=== PATIENT | male | born 1955 | race Two or more races ===

== ENCOUNTER 2019-05-04 08:27 | Outpatient (CLI) | payer BC, OTHER ==
[2019-05-04] MEDS ORDERED: LISI-170 PO (08:58)
[2019-05-04 09:42] LABS: MICROSCOPIC NOT IND
[2019-05-04 09:48] LABS: BASOPHILS # (AUTO) 0.04 x10^3/uL (0-0.1); BASOPHILS % (AUTO) 1 % (0-1); EOSINOPHILS # (AUTO) 0.09 x10^3/uL (0-0.4); EOSINOPHILS % (AUTO) 2 % (1-7); LYMPHOCYTES # (AUTO) 1.66 x10^3/uL (1-3.4); LYMPHOCYTES % (AUTO) 27 % (22-44); MD NO; MEAN CORPUSCULAR HEMOGLOBIN 27.1 pg (27.5-34.5); MEAN CORPUSCULAR HGB CONC 33.2 g/dL (33.2-36.2); MEAN CORPUSCULAR VOLUME 81.4 fL (81-97); MEAN PLATELET VOLUME 6.7 fL (7.4-10.4); MONOCYTES # (AUTO) 0.75 x10^3/uL (0.2-0.8); MONOCYTES % (AUTO) 13 % (2-9); NEUTROPHILS # (AUTO) 3.51 x10^3/uL (1.8-6.8); NEUTROPHILS % (AUTO) 58 % (42-75); PLATELET COUNT 256 x10^3/uL (130-400); RED BLOOD COUNT 5.57 x10^6/uL (4.38-5.82); RED CELL DISTRIBUTION WIDTH 14.5 % (9.4-14.8)
[2019-05-04 09:52] LABS: INTERNATIONAL NORMALIZED RATIO 1.1 (0.93-1.1); PROTHROMBIN TIME 11.7 Seconds (9.6-11.5)
[2019-05-04 09:53] LABS: ALBUMIN 4.2 g/dL (3.4-5.0); ANION GAP 6 mmol/L (5-15); CALCIUM 9.3 mg/dL (8.5-10.1); CHLORIDE 108 mmol/L (98-107)
[2019-05-04 09:57] LABS: ALANINE AMINOTRANSFERASE 36 U/L (12-78); ALKALINE PHOSPHATASE 152 U/L (45-117); BILIRUBIN,TOTAL 1.5 mg/dL (0.2-1.0)
== END 2019-05-04 23:59 | disposition home or self-care (01) ==
LOC: STAR 08:27
PROVIDERS: ATTEND Urology
DX: Z01.818 Encounter for other preprocedural examination (principal); N28.89 Other specified disorders of kidney and ureter
CPT/HCPCS: 36415; 80053; 81003; 85025; 85610; 85730; 87086; 93005

== ENCOUNTER 2019-05-09 06:00 | Inpatient (IN) | payer BC, OTHER ==
[~2019-05-09] VITALS: Ht 160 cm; Wt 73.2 kg
[~2019-05-09 06:00] MED LIST: LISI-170 PO
[2019-05-09] MEDS ORDERED: LACTATED RINGERS 1,000 ML IV SCH (07:10)
[2019-05-09 07:20] VITALS: BP 147/86
[2019-05-09] MEDS ORDERED: LIDOCAINE-MPF 1%, 2ML INFIL ONE (07:30)
[2019-05-09 07:40] VITALS: BP 147/86
[2019-05-09] MEDS ORDERED: EPINEPHRINE 1 MG/ML, 1ML ONE (10:10)
[2019-05-09] MEDS ORDERED: BUPIVACAINE/PF 0.5% ONE (10:10)
[2019-05-09] MEDS ORDERED: THROMBIN 5,000 UNIT VIAL TP ONE (10:10)
[2019-05-09] MEDS ORDERED: PROPOFOL 10 MG/ML, 20ML ONE (10:21)
[2019-05-09] MEDS ORDERED: CEFAZOLIN 1,000 MG ONE (10:21)
[2019-05-09] MEDS ORDERED: DEXAMETHASONE 4 MG/ML, 1ML ONE (10:21)
[2019-05-09] MEDS ORDERED: ROCURONIUM 10 MG/ML,10ML ONE (10:21)
[2019-05-09] MEDS ORDERED: ONDANSETRON 2MG/ML, 2ML ONE (10:21)
[2019-05-09] MEDS ORDERED: hydrALAzine 20 MG/ML, 1ML IV PRN (12:00)
[2019-05-09] MEDS ORDERED: PROMETHAZINE 25 MG/ML, 1ML IV PRN (12:00)
[2019-05-09] MEDS ORDERED: NALOXONE 0.4 MG/ML, 1ML IVPush PRN (12:00)
[2019-05-09] MEDS ORDERED: EPHEDRINE 50 MG/ML, 1ML IVPush PRN (12:00)
[2019-05-09] MEDS ORDERED: MORPHINE SULFATE 4 MG/ML, 1ML IVPush PRN (12:00)
[2019-05-09] MEDS ORDERED: ONDANSETRON 2MG/ML, 2ML IV PRN ×2 (12:00→19:00)
[2019-05-09] MEDS ORDERED: ACETAMINOPHEN 325 MG TABLET PO PRN (12:00)
[2019-05-09] MEDS ORDERED: OXYcodone 5 MG/5 ML ORAL.SOL UDC PO PRN (12:00)
[2019-05-09] MEDS ORDERED: FENTANYL PF 100 MCG/2ML EPIDPUSH PRN (12:00)
[2019-05-09] MEDS ORDERED: LABETALOL 5MG/ML, 20ML IV PRN (12:00)
[2019-05-09] MEDS ORDERED: NALOXONE 0.4 MG/ML, 1ML IV PRN (12:00)
[2019-05-09] MEDS ORDERED: MEPERIDINE/PF 25MG/ML,1ML IVPush PRN (12:00)
[2019-05-09] MEDS ORDERED: FENTANYL PF 100 MCG/2ML IV PRN (12:00)
[2019-05-09] MEDS ORDERED: MEPERIDINE/PF 25MG/0.5ML IV PRN (12:00)
[2019-05-09] MEDS: HYDROmorphone 5 MG, BUPIVACAINE/PF 0.5%, 30ML 62.5 ML in SODIUM CHLORIDE 0.9% 182.5 ML EPIDCONT SCH (16:04)
[2019-05-09] MEDS ORDERED: FENTANYL PF 100 MCG/2ML ONE (16:21)
[2019-05-09] MEDS ORDERED: OXYcodone 5 MG/5 ML ORAL.SOL UDC ONE (16:21)
[2019-05-09] MEDS ORDERED: OPIUM/BELLADONNA SUPP.RECT 16.2-30 MG ONE (16:52)
[2019-05-09] MEDS ORDERED: OPIUM/BELLADONNA SUPP.RECT 16.2-30 MG PR PRN ×2 (17:00→19:00)
[2019-05-09] MEDS ORDERED: D5%-0.45NACL+KCL 20MEQ 1,000 ML IV SCH (19:00)
[2019-05-09] MEDS: CEFAZOLIN PMX 1GM/50ML 50 ML IVPB SCH (20:30)
[2019-05-09] MEDS: SODIUM CHLORIDE FLUSH 10ML SYR IVF SCH (21:00)
[2019-05-09 23:53] VITALS: BP 82/50
[2019-05-10] VITALS (9 sets, daily range): BP systolic 84–105; BP diastolic 47–67
[2019-05-10] MEDS: CEFAZOLIN PMX 1GM/50ML 50 ML IVPB SCH (04:00)
[2019-05-10] MEDS ORDERED: SODIUM CHLORIDE 0.9%, 500ML IVBOLUS ONE ×2 (04:30→06:30)
[2019-05-10 04:42] LABS: ANION GAP 7 mmol/L (5-15); CALCIUM 6.6 mg/dL (8.5-10.1); CHLORIDE 108 mmol/L (98-107); CREATININE 1.63 mg/dL (0.7-1.3)
[2019-05-10] MEDS: LISINOPRIL 20 MG TABLET PO SCH (09:01)
[2019-05-10] MEDS: SODIUM CHLORIDE FLUSH 10ML SYR IVF SCH ×2 (09:01→19:51)
[2019-05-10] MEDS: SODIUM CHLORIDE 0.9% 1,000 ML IV SCH ×2 (11:35→19:49)
[2019-05-10] MEDS: HYDROmorphone 5 MG, BUPIVACAINE/PF 0.5%, 30ML 62.5 ML in SODIUM CHLORIDE 0.9% 182.5 ML EPIDCONT SCH ×3 (13:23→17:31)
[2019-05-11] VITALS: BP 100/65
[2019-05-11] MEDS: SODIUM CHLORIDE 0.9% 1,000 ML IV SCH ×3 (03:30→20:01)
[2019-05-11 04:00] VITALS: BP 112/72
[2019-05-11 05:42] LABS: CHLORIDE 107 mmol/L (98-107)
[2019-05-11 05:48] LABS: ANION GAP 6 mmol/L (5-15); CREATININE 1.54 mg/dL (0.7-1.3)
[2019-05-11 07:33] VITALS: BP 118/75
[2019-05-11] MEDS: SODIUM CHLORIDE FLUSH 10ML SYR IVF SCH ×2 (08:47→20:01)
[2019-05-11] MEDS: HYDROmorphone 5 MG, BUPIVACAINE/PF 0.5%, 30ML 62.5 ML in SODIUM CHLORIDE 0.9% 182.5 ML EPIDCONT SCH ×4 (08:47→19:02)
[2019-05-11] MEDS: LISINOPRIL 20 MG TABLET PO SCH (08:47)
[2019-05-11 11:55] VITALS: BP 121/79
[2019-05-11 16:00] VITALS: BP 120/71
[2019-05-11 19:13] VITALS: BP 122/79
[2019-05-12 02:14] VITALS: BP 135/62
[2019-05-12] MEDS: SODIUM CHLORIDE 0.9% 1,000 ML IV SCH ×3 (03:59→20:30)
[2019-05-12 07:58] VITALS: BP 119/79
[2019-05-12] MEDS: LISINOPRIL 20 MG TABLET PO SCH (08:53)
[2019-05-12] MEDS: SODIUM CHLORIDE FLUSH 10ML SYR IVF SCH ×2 (08:57→21:00)
[2019-05-12 13:22] VITALS: BP 132/75
[2019-05-12] MEDS: HYDROmorphone 5 MG, BUPIVACAINE/PF 0.5%, 30ML 62.5 ML in SODIUM CHLORIDE 0.9% 182.5 ML EPIDCONT SCH (18:03)
[2019-05-12 20:10] VITALS: BP 147/84
[2019-05-13 02:02] VITALS: BP 127/78
[2019-05-13] MEDS: SODIUM CHLORIDE 0.9% 1,000 ML IV SCH ×3 (04:30→20:30)
[2019-05-13 07:47] VITALS: BP 144/74
[2019-05-13] MEDS: LISINOPRIL 20 MG TABLET PO SCH (09:50)
[2019-05-13] MEDS: SODIUM CHLORIDE FLUSH 10ML SYR IVF SCH ×2 (09:51→21:00)
[2019-05-13 14:00] VITALS: BP 144/83
[2019-05-13 20:48] VITALS: BP 116/80
[2019-05-14 02:46] VITALS: BP 138/84
[2019-05-14] MEDS: SODIUM CHLORIDE 0.9% 1,000 ML IV SCH ×3 (04:30→17:58)
[2019-05-14] MEDS: HYDROmorphone 5 MG, BUPIVACAINE/PF 0.5%, 30ML 62.5 ML in SODIUM CHLORIDE 0.9% 182.5 ML EPIDCONT SCH (06:06)
[2019-05-14 07:50] VITALS: BP 146/99
[2019-05-14] MEDS: LISINOPRIL 20 MG TABLET PO SCH (09:18)
[2019-05-14] MEDS: SODIUM CHLORIDE FLUSH 10ML SYR IVF SCH ×2 (09:19→20:35)
[2019-05-14 13:30] VITALS: BP 143/88
[2019-05-14 19:30] VITALS: BP 160/95
[2019-05-14 20:30] VITALS: BP 149/94
[2019-05-14] MEDS: OXYcodone IR 5MG TABLET PO PRN (21:21)
[2019-05-15 02:50] VITALS: BP 168/91
[2019-05-15] MEDS: SODIUM CHLORIDE 0.9% 1,000 ML IV SCH (02:50)
[2019-05-15 08:34] VITALS: BP 156/95
[2019-05-15] MEDS: LISINOPRIL 20 MG TABLET PO SCH (08:38)
[2019-05-15] MEDS: SODIUM CHLORIDE FLUSH 10ML SYR IVF SCH (08:38)
[2019-05-15] MEDS: OXYcodone IR 5MG TABLET PO PRN (08:49)
[2019-05-15 13:21] VITALS: BP 150/93
[2019-05-15] MEDS ORDERED: OXYC5CAP2 PO (15:30)
[2019-05-15] MEDS ORDERED: DOCU-131 PO (15:30)
== END 2019-05-15 16:00 | disposition home or self-care (01) | DRG 660 ==
LOC: ORIP 06:00 → EDSTATUS 10:00 → 4NE 17:53 → DCLOUNGE 05-15 15:47
PROVIDERS: ADMIT Urology; ATTEND Urology
PROC: 0DBV0ZZ Excision of Mesentery, Open Approach (ICD-10-PCS; 2019-05-09)
PROC: 03HY32Z Insertion of Monitoring Device into Upper Artery, Percutaneous Approach (ICD-10-PCS; 2019-05-09)
PROC: 30233N1 Transfusion of Nonautologous Red Blood Cells into Peripheral Vein, Percutaneous Approach (ICD-10-PCS; 2019-05-09)
PROC: 0TT10ZZ Resection of Left Kidney, Open Approach (ICD-10-PCS; principal; 2019-05-09 10:00)
PROC: 07BD0ZZ Excision of Aortic Lymphatic, Open Approach (ICD-10-PCS; 2019-05-09 10:00)
DX: N28.89 Other specified disorders of kidney and ureter (principal); D78.11 Accidental puncture and laceration of the spleen during a procedure on the spleen; R31.29 Other microscopic hematuria; R59.0 Localized enlarged lymph nodes; Y83.8 Other surgical procedures as the cause of abnormal reaction of the patient, or of later complication, without mention of misadventure at the time of the procedure; Y82.8 Other medical devices associated with adverse incidents; Y92.234 Operating room of hospital as the place of occurrence of the external cause
CPT/HCPCS: 36415; 75894; J3490; S0020; 80048; 85014; 85018; 86850; 86870; 86900; 86922; 86923; 88305; 88307; 99156; 99157; G0378; J0171; J0690; J1100; J1170; J2250; J2274; J2405; J2704; J3010; C1751; C1760; C1768; C1769; C1894; J2310; J2370; J7030; J7040; J7050; J7120; P9016

== ENCOUNTER 2019-06-03 23:40 | Inpatient (IN) | payer OTHER, MEDICAID ==
[~2019-06-03] VITALS: Ht 160 cm; Wt 66.7 kg
[~2019-06-03 23:40] MED LIST changes: +DOCU-131 PO; +OXYC5CAP2 PO
--- NOTE | 2019-06-04 00:11 | NUR ---
THIS IS A 63Y M THAT COMES IN FOR CONSTIPATION FOLLOWING KIDNEY SX MAY 09 OF THIS YEAR . PT HAS BEEN TAKING PAIN MEDS AND STOOL SOFTENERS. PT STS HE HAS NOT HAD BOWEL MOVEMENT IN 4DAYS DESPITE ENEMA AND SOFTENERS AND MIRALAX. PT AND DAUGHTERS AT BEDSIDE, MADALYN. DENIES ABD PAIN. CALL LIGHT IN REACH.
--- NOTE | 2019-06-04 00:23 | NUR ---
MD AT BEDSIDE TO ASSESS PT
[2019-06-04] MEDS ORDERED: ONDANSETRON 2MG/ML, 2ML IVPush ONE (00:30)
[2019-06-04] MEDS ORDERED: SODIUM CHLORIDE 0.9% 1,000ML IVBOLUS ONE (00:30)
[2019-06-04] MEDS ORDERED: ONDANSETRON 2MG/ML, 2ML ONE (00:33)
[2019-06-04 01:04] LABS: ALBUMIN 3.5 g/dL (3.4-5.0); ANION GAP 6 mmol/L (5-15); BASOPHILS # (AUTO) 0.02 x10^3/uL (0-0.1); BASOPHILS % (AUTO) 0 % (0-1); CHLORIDE 101 mmol/L (98-107); EOSINOPHILS # (AUTO) 0.03 x10^3/uL (0-0.4); EOSINOPHILS % (AUTO) 0 % (1-7); LYMPHOCYTES # (AUTO) 1.44 x10^3/uL (1-3.4); LYMPHOCYTES % (AUTO) 20 % (22-44); MD NO; MEAN CORPUSCULAR HEMOGLOBIN 27.5 pg (27.5-34.5); MEAN CORPUSCULAR HGB CONC 33.3 g/dL (33.2-36.2); MEAN CORPUSCULAR VOLUME 82.5 fL (81-97); MEAN PLATELET VOLUME 6.8 fL (7.4-10.4); MONOCYTES # (AUTO) 0.79 x10^3/uL (0.2-0.8); MONOCYTES % (AUTO) 11 % (2-9); NEUTROPHILS # (AUTO) 5.07 x10^3/uL (1.8-6.8); NEUTROPHILS % (AUTO) 69 % (42-75); PLATELET COUNT 380 x10^3/uL (130-400); RED BLOOD COUNT 4.79 x10^6/uL (4.38-5.82); RED CELL DISTRIBUTION WIDTH 14.8 % (9.4-14.8)
[2019-06-04 01:07] LABS: ALANINE AMINOTRANSFERASE 23 U/L (12-78); ALKALINE PHOSPHATASE 115 U/L (45-117); BILIRUBIN,TOTAL 1.3 mg/dL (0.2-1.0); CREATININE 1.33 mg/dL (0.7-1.3); TOTAL PROTEIN 7.4 g/dL (6.4-8.2)
--- NOTE | 2019-06-04 04:10 | NUR ---
ALL RESULTS BACK AT THIS TIME CHART UP FOR RECHECK
[2019-06-04] MEDS ORDERED: LIDOCAINE 4% TOPICAL SOLUTION 50 ML TP ONE (04:30)
[2019-06-04] MEDS ORDERED: BENZOCAINE 20% SPRAY 0.5ML ONE (04:45)
[2019-06-04] MEDS ORDERED: OMNIPAQUE 350 MG/ML, 100ML BOTTLE ONE (05:49)
[2019-06-04] MEDS ORDERED: ONDANSETRON 2MG/ML, 2ML IVPush PRN (06:00)
[2019-06-04] MEDS ORDERED: MORPHINE SULFATE 4 MG/ML, 1ML IV PRN (06:00)
[2019-06-04 07:50] VITALS: BP 146/96
[2019-06-04] MEDS: HEPARIN 5,000 UNITS/ML, 1ML SQ SCH ×2 (09:00→17:00)
[2019-06-04] MEDS: SODIUM CHLORIDE 0.9% 1,000 ML IV SCH ×2 (09:47→17:59)
[2019-06-04 12:50] VITALS: BP 146/96
[2019-06-04 14:03] VITALS: BP 150/97
[2019-06-04 21:09] VITALS: BP 143/89
[2019-06-05] MEDS: HEPARIN 5,000 UNITS/ML, 1ML SQ SCH ×3 (01:00→17:00)
[2019-06-05] MEDS: SODIUM CHLORIDE 0.9% 1,000 ML IV SCH ×3 (01:52→17:00)
[2019-06-05 02:45] VITALS: BP 143/94
[2019-06-05 06:19] LABS: CHLORIDE 105 mmol/L (98-107)
[2019-06-05 06:24] LABS: BASOPHILS # (AUTO) 0.05 x10^3/uL (0-0.1); BASOPHILS % (AUTO) 1 % (0-1); EOSINOPHILS # (AUTO) 0.08 x10^3/uL (0-0.4); EOSINOPHILS % (AUTO) 1 % (1-7); LYMPHOCYTES # (AUTO) 1.54 x10^3/uL (1-3.4); LYMPHOCYTES % (AUTO) 20 % (22-44); MD NO; MEAN CORPUSCULAR HEMOGLOBIN 27.6 pg (27.5-34.5); MEAN CORPUSCULAR HGB CONC 33.4 g/dL (33.2-36.2); MEAN CORPUSCULAR VOLUME 82.6 fL (81-97); MEAN PLATELET VOLUME 7.4 fL (7.4-10.4); MONOCYTES # (AUTO) 0.94 x10^3/uL (0.2-0.8); MONOCYTES % (AUTO) 12 % (2-9); NEUTROPHILS # (AUTO) 5.22 x10^3/uL (1.8-6.8); NEUTROPHILS % (AUTO) 67 % (42-75); PLATELET COUNT 295 x10^3/uL (130-400); RED BLOOD COUNT 4.26 x10^6/uL (4.38-5.82); RED CELL DISTRIBUTION WIDTH 14.7 % (9.4-14.8)
[2019-06-05 06:37] LABS: ALANINE AMINOTRANSFERASE 17 U/L (12-78); ALBUMIN 3.1 g/dL (3.4-5.0); ALKALINE PHOSPHATASE 104 U/L (45-117); ANION GAP 8 mmol/L (5-15); BILIRUBIN,TOTAL 1.5 mg/dL (0.2-1.0); CALCIUM 8.3 mg/dL (8.5-10.1); CREATININE 1.24 mg/dL (0.7-1.3); TOTAL PROTEIN 6.4 g/dL (6.4-8.2)
[2019-06-05] MEDS ORDERED: BUPIVACAINE/PF-EPI 0.5% 1:200K ONE (06:44)
[2019-06-05 07:26] VITALS: BP 156/97
[2019-06-05] MEDS: PANTOPRAZOLE 40 MG IV IVPush SCH (08:18)
[2019-06-05] MEDS ORDERED: MIDAZOLAM 1 MG/ML, 2ML ONE (09:25)
[2019-06-05] MEDS ORDERED: FENTANYL PF 250 MCG/5ML ONE (09:25)
[2019-06-05] MEDS ORDERED: PHENYLEPHRINE 10 MG/ML ONE (09:43)
[2019-06-05] MEDS ORDERED: ALBUMIN HUMAN 5%, 25G/500ML ONE (10:30)
[2019-06-05] MEDS ORDERED: NEOSTIGMINE 1 MG/ML, 10ML ONE (11:26)
[2019-06-05] MEDS ORDERED: PROPOFOL 10 MG/ML, 20ML ONE (11:26)
[2019-06-05] MEDS ORDERED: GLYCOPYRROLATE 0.2MG/1ML, 5ML ONE (11:26)
[2019-06-05] MEDS ORDERED: ONDANSETRON 2MG/ML, 2ML ONE (11:26)
[2019-06-05] MEDS ORDERED: SUCCINYLCHOLINE 20 MG/ML, 10ML ONE (11:26)
[2019-06-05] MEDS ORDERED: ROCURONIUM 10MG/ML,5ML ONE (11:26)
[2019-06-05] MEDS ORDERED: DEXAMETHASONE 4 MG/ML, 1ML ONE (11:26)
[2019-06-05] MEDS ORDERED: FENTANYL PF 100 MCG/2ML ONE ×2 (12:36→13:05)
[2019-06-05] MEDS ORDERED: HYDROmorphone 1 MG/ML, 1ML INJ ONE ×3 (13:05→14:10)
[2019-06-05] MEDS: FENTANYL PF 100 MCG/2ML IV PRN ×2 (13:19→13:27)
[2019-06-05] MEDS: HYDROmorphone 2 MG/ML, 1ML IVPush PRN ×6 (13:20→14:20)
[2019-06-05] MEDS ORDERED: LACTATED RINGERS 1,000 ML IV SCH (13:22)
[2019-06-05] MEDS ORDERED: ONDANSETRON 2MG/ML, 2ML IV PRN (13:30)
[2019-06-05] MEDS ORDERED: hydrALAzine 20 MG/ML, 1ML IV PRN (13:30)
[2019-06-05] MEDS ORDERED: HYDROmorphone 1 MG/ML, 1ML INJ IVPush PRN ×2 (13:30)
[2019-06-05] MEDS ORDERED: MEPERIDINE/PF 25MG/ML,1ML IVPush PRN (13:30)
[2019-06-05] MEDS ORDERED: LABETALOL 5MG/ML, 20ML IV PRN (13:30)
[2019-06-05] MEDS ORDERED: PROMETHAZINE 25 MG/ML, 1ML IV PRN (13:30)
[2019-06-05] MEDS ORDERED: MEPERIDINE/PF 25MG/ML,1ML ONE (13:44)
[2019-06-05 15:05] VITALS: BP 138/88
[2019-06-05] MEDS: ACETAMINOPHEN 325 MG TABLET PO SCH ×2 (17:21→23:34)
[2019-06-05] MEDS: LACTATED RINGERS 1,000 ML IV SCH (17:21)
[2019-06-05 19:27] VITALS: BP 151/76
[2019-06-05] MEDS: HYDROmorphone 1 MG/ML, 1ML INJ IV PRN (19:54)
[2019-06-05 23:33] VITALS: BP 113/78
[2019-06-06] MEDS: HEPARIN 5,000 UNITS/ML, 1ML SQ SCH ×3 (00:23→17:05)
[2019-06-06] MEDS: HYDROmorphone 1 MG/ML, 1ML INJ IV PRN ×5 (00:24→23:03)
[2019-06-06] MEDS: SODIUM CHLORIDE 0.9% 1,000 ML IV SCH (01:00)
[2019-06-06] MEDS: LACTATED RINGERS 1,000 ML IV SCH ×5 (02:00→22:00)
[2019-06-06 03:29] VITALS: BP 123/80
[2019-06-06 05:01] LABS: BASOPHILS # (AUTO) 0.02 x10^3/uL (0-0.1); BASOPHILS % (AUTO) 0 % (0-1); EOSINOPHILS # (AUTO) 0.01 x10^3/uL (0-0.4); EOSINOPHILS % (AUTO) 0 % (1-7); LYMPHOCYTES % (AUTO) 16 % (22-44); MD NO; MEAN CORPUSCULAR HEMOGLOBIN 27.7 pg (27.5-34.5); MEAN CORPUSCULAR HGB CONC 32.9 g/dL (33.2-36.2); MEAN CORPUSCULAR VOLUME 84.2 fL (81-97); MEAN PLATELET VOLUME 6.6 fL (7.4-10.4); MONOCYTES # (AUTO) 1.32 x10^3/uL (0.2-0.8); MONOCYTES % (AUTO) 14 % (2-9); NEUTROPHILS # (AUTO) 6.81 x10^3/uL (1.8-6.8); NEUTROPHILS % (AUTO) 70 % (42-75); PLATELET COUNT 288 x10^3/uL (130-400); RED BLOOD COUNT 3.91 x10^6/uL (4.38-5.82); RED CELL DISTRIBUTION WIDTH 14.6 % (9.4-14.8)
[2019-06-06 05:12] LABS: CHLORIDE 100 mmol/L (98-107)
[2019-06-06 05:17] LABS: ALANINE AMINOTRANSFERASE 16 U/L (12-78); ALBUMIN 3.1 g/dL (3.4-5.0); ALKALINE PHOSPHATASE 71 U/L (45-117); ANION GAP 8 mmol/L (5-15); BILIRUBIN,TOTAL 2.1 mg/dL (0.2-1.0); CALCIUM 7.7 mg/dL (8.5-10.1); CREATININE 1.44 mg/dL (0.7-1.3); TOTAL PROTEIN 5.7 g/dL (6.4-8.2)
[2019-06-06] MEDS: ACETAMINOPHEN 325 MG TABLET PO SCH ×3 (05:49→18:28)
[2019-06-06 07:10] VITALS: BP 115/76
[2019-06-06] MEDS: PANTOPRAZOLE 40 MG IV IVPush SCH (08:49)
[2019-06-06 14:23] VITALS: BP 107/71
[2019-06-06 19:58] VITALS: BP 108/73
[2019-06-07] MEDS: ACETAMINOPHEN 325 MG TABLET PO SCH ×4 (00:33→18:28)
[2019-06-07] MEDS: HEPARIN 5,000 UNITS/ML, 1ML SQ SCH ×3 (00:34→16:07)
[2019-06-07 00:58] VITALS: BP 98/67
[2019-06-07] MEDS: LACTATED RINGERS 1,000 ML IV SCH (01:00)
[2019-06-07 07:16] LABS: BASOPHILS # (AUTO) 0.04 x10^3/uL (0-0.1); BASOPHILS % (AUTO) 1 % (0-1); EOSINOPHILS # (AUTO) 0.03 x10^3/uL (0-0.4); EOSINOPHILS % (AUTO) 0 % (1-7); LYMPHOCYTES # (AUTO) 1.48 x10^3/uL (1-3.4); LYMPHOCYTES % (AUTO) 17 % (22-44); MD NO; MEAN CORPUSCULAR HEMOGLOBIN 27.4 pg (27.5-34.5); MEAN CORPUSCULAR HGB CONC 32.8 g/dL (33.2-36.2); MEAN CORPUSCULAR VOLUME 83.6 fL (81-97); MONOCYTES % (AUTO) 12 % (2-9); NEUTROPHILS # (AUTO) 6.28 x10^3/uL (1.8-6.8); NEUTROPHILS % (AUTO) 70 % (42-75); PLATELET COUNT 269 x10^3/uL (130-400); RED BLOOD COUNT 3.69 x10^6/uL (4.38-5.82); RED CELL DISTRIBUTION WIDTH 14.9 % (9.4-14.8)
[2019-06-07 07:20] LABS: ALBUMIN 2.8 g/dL (3.4-5.0); ANION GAP 8 mmol/L (5-15); CALCIUM 8.1 mg/dL (8.5-10.1); CHLORIDE 102 mmol/L (98-107)
[2019-06-07 07:25] LABS: ALANINE AMINOTRANSFERASE 15 U/L (12-78); ALKALINE PHOSPHATASE 72 U/L (45-117); BILIRUBIN,TOTAL 1.7 mg/dL (0.2-1.0); CREATININE 1.12 mg/dL (0.7-1.3); TOTAL PROTEIN 5.7 g/dL (6.4-8.2)
[2019-06-07 08:04] VITALS: BP 112/75
[2019-06-07] MEDS: PANTOPRAZOLE 40 MG IV IVPush SCH (08:08)
[2019-06-07] MEDS: SODIUM CHLORIDE 0.9% 1,000 ML IV SCH ×2 (08:08→16:07)
[2019-06-07] MEDS: HYDROmorphone 1 MG/ML, 1ML INJ IV PRN ×2 (12:37→22:42)
[2019-06-07 14:09] VITALS: BP 116/70
[2019-06-07 21:15] VITALS: BP 132/84
[2019-06-08] MEDS: SODIUM CHLORIDE 0.9% 1,000 ML IV SCH ×3 (00:45→18:14)
[2019-06-08] MEDS: ACETAMINOPHEN 325 MG TABLET PO SCH ×4 (00:45→17:51)
[2019-06-08] MEDS: HEPARIN 5,000 UNITS/ML, 1ML SQ SCH ×3 (00:46→17:51)
[2019-06-08 02:39] VITALS: BP 121/82
[2019-06-08 05:12] LABS: ALBUMIN 2.3 g/dL (3.4-5.0); ANION GAP 6 mmol/L (5-15); BASOPHILS # (AUTO) 0.03 x10^3/uL (0-0.1); BASOPHILS % (AUTO) 1 % (0-1); CALCIUM 7.6 mg/dL (8.5-10.1); CHLORIDE 108 mmol/L (98-107); EOSINOPHILS % (AUTO) 2 % (1-7); LYMPHOCYTES # (AUTO) 1.34 x10^3/uL (1-3.4); LYMPHOCYTES % (AUTO) 21 % (22-44); MD NO; MEAN CORPUSCULAR HEMOGLOBIN 27.8 pg (27.5-34.5); MEAN CORPUSCULAR HGB CONC 33.5 g/dL (33.2-36.2); MEAN PLATELET VOLUME 6.6 fL (7.4-10.4); MONOCYTES # (AUTO) 0.79 x10^3/uL (0.2-0.8); MONOCYTES % (AUTO) 12 % (2-9); NEUTROPHILS # (AUTO) 4.07 x10^3/uL (1.8-6.8); NEUTROPHILS % (AUTO) 64 % (42-75); PLATELET COUNT 249 x10^3/uL (130-400)
[2019-06-08 05:15] LABS: CREATININE 0.99 mg/dL (0.7-1.3)
[2019-06-08 05:16] LABS: ALANINE AMINOTRANSFERASE 14 U/L (12-78); ALKALINE PHOSPHATASE 75 U/L (45-117); BILIRUBIN,TOTAL 1.3 mg/dL (0.2-1.0); TOTAL PROTEIN 5.4 g/dL (6.4-8.2)
[2019-06-08 07:43] VITALS: BP_SYST 132; BP_SYST 142; BP_DIAS 16; BP_DIAS 92
[2019-06-08] MEDS: PANTOPRAZOLE 40 MG IV IVPush SCH (10:07)
[2019-06-08 14:45] VITALS: BP 109/73
[2019-06-08 18:58] VITALS: BP 137/90
[2019-06-09] MEDS: ACETAMINOPHEN 325 MG TABLET PO SCH ×4 (00:30→17:39)
[2019-06-09 01:23] VITALS: BP 150/91
[2019-06-09] MEDS: HEPARIN 5,000 UNITS/ML, 1ML SQ SCH ×2 (01:53→10:14)
[2019-06-09] MEDS: HYDROmorphone 1 MG/ML, 1ML INJ IV PRN (01:53)
[2019-06-09] MEDS: SODIUM CHLORIDE 0.9% 1,000 ML IV SCH ×2 (02:02→11:33)
[2019-06-09 05:28] LABS: BASOPHILS # (AUTO) 0.03 x10^3/uL (0-0.1); BASOPHILS % (AUTO) 1 % (0-1); EOSINOPHILS # (AUTO) 0.23 x10^3/uL (0-0.4); EOSINOPHILS % (AUTO) 4 % (1-7); LYMPHOCYTES # (AUTO) 1.43 x10^3/uL (1-3.4); LYMPHOCYTES % (AUTO) 25 % (22-44); MD NO; MEAN CORPUSCULAR HEMOGLOBIN 27.5 pg (27.5-34.5); MEAN CORPUSCULAR HGB CONC 33.4 g/dL (33.2-36.2); MEAN CORPUSCULAR VOLUME 82.4 fL (81-97); MEAN PLATELET VOLUME 6.8 fL (7.4-10.4); MONOCYTES # (AUTO) 0.72 x10^3/uL (0.2-0.8); MONOCYTES % (AUTO) 13 % (2-9); NEUTROPHILS # (AUTO) 3.22 x10^3/uL (1.8-6.8); NEUTROPHILS % (AUTO) 57 % (42-75); PLATELET COUNT 279 x10^3/uL (130-400); RED BLOOD COUNT 3.15 x10^6/uL (4.38-5.82); RED CELL DISTRIBUTION WIDTH 14.9 % (9.4-14.8)
[2019-06-09 05:36] LABS: ALANINE AMINOTRANSFERASE 16 U/L (12-78); ALBUMIN 2.3 g/dL (3.4-5.0); ANION GAP 6 mmol/L (5-15); CHLORIDE 109 mmol/L (98-107); CREATININE 0.98 mg/dL (0.7-1.3)
[2019-06-09 05:38] LABS: ALKALINE PHOSPHATASE 107 U/L (45-117); BILIRUBIN,TOTAL 0.8 mg/dL (0.2-1.0); TOTAL PROTEIN 5.4 g/dL (6.4-8.2)
[2019-06-09 07:44] VITALS: BP 136/85
[2019-06-09] MEDS ORDERED: LISINOPRIL 20 MG TABLET PO SCH (09:00)
[2019-06-09] MEDS: PANTOPRAZOLE 40 MG IV IVPush SCH (10:14)
[2019-06-09] MEDS ORDERED: PANT40TA5 PO (13:26)
[2019-06-09] MEDS ORDERED: OXYC5TAB2 PO (14:08)
[2019-06-09 14:33] VITALS: BP 130/85
[2019-06-09 17:27] VITALS: BP 149/98
[2019-06-10] MEDS ORDERED: PANTOPRAZOLE 40MG TABLET PO SCH (06:00)
== END 2019-06-09 17:45 | disposition home or self-care (01) | DRG 231 ==
LOC: ED 06-04 05:06 → EDIP 06-04 05:34 → 4NE 06-04 07:08
PROVIDERS: ADMIT Family Medicine; ATTEND Family Medicine
PROC: 0DTG0ZZ Resection of Left Large Intestine, Open Approach (ICD-10-PCS; principal; 2019-06-05 09:00)
DX: K56.699 Other intestinal obstruction unspecified as to partial versus complete obstruction (principal); N17.9 Acute kidney failure, unspecified; E87.1 Hypo-osmolality and hyponatremia; I10 Essential (primary) hypertension; D64.9 Anemia, unspecified; K76.9 Liver disease, unspecified; Z90.5 Acquired absence of kidney; Z85.528 Personal history of other malignant neoplasm of kidney; Z79.899 Other long term (current) drug therapy; Z90.49 Acquired absence of other specified parts of digestive tract; Z93.3 Colostomy status
CPT/HCPCS: 36415; 74021; 74177; 80053; 83615; 83690; 85025; 86850; 86870; 86900; 86902; 86922; 86923; 88307; 88342; 96361; 96374; G0378; J1100; J1170; J1644; J2250; J2405; J2704; J2710; J3010; P9045; Q9967; C1760; C9113; J0330; J2175; J2270; J2370; J7030; J7120

== ENCOUNTER 2019-08-25 14:53 | Outpatient (CLI) | payer MEDICAID ==
[~2019-08-25 14:53] MED LIST changes: +OXYC5TAB2 PO; +PANT40TA5 PO
== END 2019-08-25 23:59 | disposition home or self-care (01) ==
LOC: CFH 14:53
PROVIDERS: ATTEND Specialist
DX: C64.2 Malignant neoplasm of left kidney, except renal pelvis (principal); N28.1 Cyst of kidney, acquired; N17.9 Acute kidney failure, unspecified
CPT/HCPCS: 76770

== ENCOUNTER 2019-10-24 11:30 | Outpatient (CLI) | payer MEDICAID ==
[~2019-10-24 11:30] MED LIST changes: -PANT40TA5 PO; +PANT40TA6 PO
[2019-10-24] MEDS ORDERED: OMNIPAQUE 350 MG/ML, 100ML BOTTLE ONE (16:15)
== END 2019-10-24 23:59 | disposition home or self-care (01) ==
LOC: CFH 11:30
PROVIDERS: ATTEND Specialist
DX: C64.2 Malignant neoplasm of left kidney, except renal pelvis (principal); K43.9 Ventral hernia without obstruction or gangrene; N13.30 Unspecified hydronephrosis; J98.4 Other disorders of lung; J84.10 Pulmonary fibrosis, unspecified; K76.89 Other specified diseases of liver; N28.89 Other specified disorders of kidney and ureter; N12 Tubulo-interstitial nephritis, not specified as acute or chronic; R59.9 Enlarged lymph nodes, unspecified
CPT/HCPCS: 71260; 74177; Q9967

== ENCOUNTER 2020-01-11 12:19 | Inpatient (IN) | payer MEDICAID ==
[~2020-01-11] VITALS: Ht 167.6 cm; Wt 60.5 kg
--- NOTE | 2020-01-11 12:58 | NUR ---
LATE NOTE FOR 1248. IV ACCESS OBTAINED. PT PLACED ON CRASH CART AND PADS. 6 MG OF ADENOSINE GIVEN PER MD VERBAL ORDER AT BEDSIDE. PT CONVERTED TO A SINUS RHYTHM AND REPEAT EKG PERFORMED.
[2020-01-11] MEDS ORDERED: ADENOSINE 6 MG/2 ML IVPush ONE (13:00)
[2020-01-11] MEDS ORDERED: SODIUM CHLORIDE FLUSH 10ML SYR IVF ONE (13:00)
[2020-01-11] MEDS ORDERED: SODIUM CHLORIDE 0.9% 1,000ML IVBOLUS ONE (13:00)
[2020-01-11] MEDS ORDERED: METOPROLOL 1 MG/ML, 5ML IVPush PRN (13:00)
[2020-01-11 13:22] LABS: BASOPHILS % (AUTO) 1 % (0-1); EOSINOPHILS % (AUTO) 1 % (1-7); LYMPHOCYTES % (AUTO) 30 % (22-44); MEAN CORPUSCULAR HEMOGLOBIN 23.3 pg (27.5-34.5); MEAN CORPUSCULAR HGB CONC 33.1 g/dL (33.2-36.2); MEAN PLATELET VOLUME 8.6 fL (7.4-10.4); MONOCYTES % (AUTO) 8 % (2-9); NEUTROPHILS % (AUTO) 60 % (42-75); PLATELET COUNT 404 x10^3/uL (130-400); RED BLOOD COUNT 6.49 x10^6/uL (4.38-5.82); RED CELL DISTRIBUTION WIDTH 24.5 % (9.4-14.8)
[2020-01-11 13:32] LABS: ALANINE AMINOTRANSFERASE 21 U/L (12-78); ALBUMIN 3.2 g/dL (3.4-5.0); ANION GAP 8 mmol/L (5-15); CALCIUM 9.3 mg/dL (8.5-10.1); CHLORIDE 105 mmol/L (98-107); CREATININE 1.92 mg/dL (0.7-1.3)
[2020-01-11 13:36] LABS: ALKALINE PHOSPHATASE 130 U/L (45-117); BILIRUBIN,TOTAL 0.6 mg/dL (0.2-1.0); TOTAL PROTEIN 8.7 g/dL (6.4-8.2)
[2020-01-11 13:39] LABS: TROPONIN I 0.521 ng/mL (0.000-0.045)
[2020-01-11 13:40] LABS: MD SCAN
--- NOTE | 2020-01-11 14:58 | NUR ---
PT AND UPDATED ON POC. PT AT THIS TIME AGREES WITH POC
[2020-01-11] MEDS ORDERED: ADENOSINE 6 MG/2 ML ONE (15:00)
[2020-01-11] MEDS ORDERED: SUNI37.5 PO (16:37)
[2020-01-11] MEDS ORDERED: DOCUSATE 100 MG CAPSULE PO PRN (18:00)
[2020-01-11] MEDS ORDERED: ACETAMINOPHEN 325 MG TABLET PO PRN (18:00)
[2020-01-11] MEDS ORDERED: ONDANSETRON ODT 4 MG PO PRN (18:00)
[2020-01-11] MEDS ORDERED: POLYETHYLENE GLYCOL 17 GM PACKET PO PRN (18:00)
[2020-01-11] MEDS ORDERED: ONDANSETRON 2MG/ML, 2ML IVPush PRN (18:00)
[2020-01-11] MEDS: LACTATED RINGERS 1,000 ML IV SCH (18:19)
[2020-01-11] MEDS: METOPROLOL TARTRATE 25 MG TAB PO SCH (18:24)
[2020-01-11 18:46] LABS: TROPONIN I 0.474 ng/mL (0.000-0.045)
[2020-01-11 19:21] VITALS: BP 109/76
[2020-01-11] MEDS ORDERED: ALUMINUM/MAG/SIMETHICONE 30 ML UDC PO PRN (21:00)
[2020-01-11 21:06] LABS: MICROSCOPIC AUTO
[2020-01-12 01:13] LABS: TROPONIN I 0.357 ng/mL (0.000-0.045)
[2020-01-12 01:40] VITALS: BP 99/68
[2020-01-12 05:31] LABS: ALBUMIN 2.5 g/dL (3.4-5.0); ANION GAP 4 mmol/L (5-15); BASOPHILS % (AUTO) 1 % (0-1); CALCIUM 8.5 mg/dL (8.5-10.1); CHLORIDE 106 mmol/L (98-107); EOSINOPHILS % (AUTO) 4 % (1-7); LYMPHOCYTES % (AUTO) 28 % (22-44); MEAN CORPUSCULAR HEMOGLOBIN 22.8 pg (27.5-34.5); MEAN CORPUSCULAR HGB CONC 32.4 g/dL (33.2-36.2); MEAN PLATELET VOLUME 8.4 fL (7.4-10.4); MONOCYTES % (AUTO) 9 % (2-9); NEUTROPHILS % (AUTO) 57 % (42-75); PLATELET COUNT 269 x10^3/uL (130-400); RED BLOOD COUNT 5.73 x10^6/uL (4.38-5.82); RED CELL DISTRIBUTION WIDTH 24.3 % (9.4-14.8)
[2020-01-12 05:36] LABS: ALANINE AMINOTRANSFERASE 15 U/L (12-78); ALKALINE PHOSPHATASE 101 U/L (45-117); BILIRUBIN,TOTAL 0.7 mg/dL (0.2-1.0); CREATININE 1.55 mg/dL (0.7-1.3)
[2020-01-12] MEDS: METOPROLOL TARTRATE 25 MG TAB PO SCH (05:36)
[2020-01-12] MEDS: LACTATED RINGERS 1,000 ML IV SCH (05:36)
[2020-01-12 05:37] VITALS: BP 113/80
[2020-01-12 05:43] LABS: MD NO
[2020-01-12 07:53] VITALS: BP 109/74
[2020-01-12] MEDS ORDERED: METO25TA35 PO (11:50)
[2020-01-12] MEDS ORDERED: LOPERAMIDE 1 MG/5 ML, 10ML UDC PO ONE (12:30)
[2020-01-12 12:55] VITALS: BP 117/83
[2020-01-12] MEDS ORDERED: LOPERAMIDE 2 MG CAPSULE PO ONE (13:00)
== END 2020-01-12 15:11 | disposition home or self-care (01) | DRG 308 ==
LOC: ED 12:52 → INTOOBSV 16:44 → 5SO 16:44 → OBSVTOIN 01-12 11:40
PROVIDERS: ADMIT Family Medicine; ATTEND Family Medicine
PROC: 5A2204Z Restoration of Cardiac Rhythm, Single (ICD-10-PCS; principal; 2020-01-11)
DX: I47.1 Supraventricular tachycardia (principal); N17.0 Acute kidney failure with tubular necrosis; C64.9 Malignant neoplasm of unspecified kidney, except renal pelvis; D72.829 Elevated white blood cell count, unspecified; Z20.828 Contact with and (suspected) exposure to other viral communicable diseases; Z85.038 Personal history of other malignant neoplasm of large intestine; Z90.5 Acquired absence of kidney; Z93.3 Colostomy status; Z90.49 Acquired absence of other specified parts of digestive tract
CPT/HCPCS: 36415; 71045; 80053; 81001; 82570; 83605; 84145; 84300; 84484; 85025; 87635; 93005; G0378; J0153; J7030; J7120

== ENCOUNTER → 2020-08-09 | Outpatient (CLI) | payer MEDICAID ==
[~2020-08-09] MED LIST changes: +METO25TA35 PO; +OMNIPAQUE 350 MG/ML, 100ML BOTTLE ONE; +SUNI37.5 PO
== END | disposition home or self-care (01) ==
LOC: CFH 13:07
PROVIDERS: ATTEND Specialist
DX: C64.2 Malignant neoplasm of left kidney, except renal pelvis (principal); Z90.5 Acquired absence of kidney
CPT/HCPCS: 71260; 74177; 82565; Q9967

== ENCOUNTER → 2020-09-06 | Outpatient (CLI) | payer MEDICAID ==
[~2020-09-06] MED LIST changes: -OMNIPAQUE 350 MG/ML, 100ML BOTTLE ONE
== END | disposition home or self-care (01) ==
LOC: RAD 13:13
PROVIDERS: ATTEND Specialist
DX: C64.2 Malignant neoplasm of left kidney, except renal pelvis (principal); M79.604 Pain in right leg; R60.0 Localized edema

== ENCOUNTER → 2020-09-10 | Outpatient (CLI) | payer MEDICAID | END | disposition home or self-care (01) | LOC: RAD 16:04 | PROVIDERS: ATTEND Specialist | DX: Z01.89 Encounter for other specified special examinations (principal); Z51.12 Encounter for antineoplastic immunotherapy; Z11.59 Encounter for screening for other viral diseases; D64.9 Anemia, unspecified; C64.2 Malignant neoplasm of left kidney, except renal pelvis; D47.3 Essential (hemorrhagic) thrombocythemia; Z79.899 Other long term (current) drug therapy ==

== ENCOUNTER → 2020-11-08 | Outpatient (CLI) | payer MEDICAID ==
[~2020-11-08] MED LIST changes: +OMNIPAQUE 350 MG/ML, 100ML BOTTLE ONE
== END | disposition home or self-care (01) ==
LOC: CFH 14:55
PROVIDERS: ATTEND Specialist
DX: C64.2 Malignant neoplasm of left kidney, except renal pelvis (principal); K43.9 Ventral hernia without obstruction or gangrene; R91.8 Other nonspecific abnormal finding of lung field; D64.9 Anemia, unspecified; K82.0 Obstruction of gallbladder; E04.1 Nontoxic single thyroid nodule; Z79.899 Other long term (current) drug therapy
CPT/HCPCS: 71260; 74177; Q9967

== ENCOUNTER 2020-12-11 08:37 | Outpatient (CLI) | payer MEDICAID ==
[~2020-12-11 08:37] MED LIST changes: -OMNIPAQUE 350 MG/ML, 100ML BOTTLE ONE
== END 2020-12-11 23:59 | disposition home or self-care (01) ==
LOC: ROC 08:37
PROVIDERS: ATTEND Radiology Radiation Oncology
DX: Z08 Encounter for follow-up examination after completed treatment for malignant neoplasm (principal); Z85.528 Personal history of other malignant neoplasm of kidney; Z79.899 Other long term (current) drug therapy
CPT/HCPCS: 99213; G0463